=== PATIENT | male | born 1970 | race African-American/Black ===

== ENCOUNTER 2020-10-10 11:46 | Emergency (ER) | payer MEDICAID ==
[~2020-10-10] VITALS: Ht 170.2 cm; Wt 63.0 kg
[~2020-10-10 11:46] MED LIST: METF-414
[2020-10-10] MEDS ORDERED: CEFTRIAXONE SODIUM 250 MG/VIAL IM ONE (12:30)
[2020-10-10] MEDS ORDERED: AZITHROMYCIN 500 MG TABLET PO ONE (12:30)
[2020-10-10] MEDS ORDERED: ACETAMINOPHEN 325MG TABLET PO ONE (12:30)
[2020-10-10 14:46] VITALS: BP 138/83
== END 2020-10-10 14:47 | disposition home or self-care (01) ==
LOC: ER 11:46
DX: M25.512 Pain in left shoulder (principal); R63.4 Abnormal weight loss; F12.10 Cannabis abuse, uncomplicated; E11.9 Type 2 diabetes mellitus without complications; Z11.3 Encounter for screening for infections with a predominantly sexual mode of transmission
CPT/HCPCS: 71045; 73030; 96372; 99284; J0696

== ENCOUNTER 2021-04-21 20:51 | Emergency (ER) | payer MEDICAID, OTHER ==
[~2021-04-21] VITALS: Ht 170.2 cm; Wt 65.7 kg
[2021-04-22] MEDS ORDERED: ASPIRIN 325MG EC TABLET PO ONE
[2021-04-22 00:03] LABS: BASOPHILS % 0.9 % (0.0-2.0); HEMATOCRIT. 40.2 % (42.0-52.0); LYMPHOCYTES % 37.9 % (20.0-50.0); MEAN CORPUSCULAR HEMOGLOBIN 31.8 pg (28.0-32.0); MEAN CORPUSCULAR VOLUME 91.4 fL (80.0-94.0); MEAN PLATELET VOLUME 8.6 fl (7.4-10.4); MONOCYTES % 6.1 % (2.0-8.0); NEUTROPHILS % 51.1 % (40.0-76.0); PLATELET 260 x1000/uL (130-400); RED BLOOD CELL COUNT 4.39 mill/uL (4.7-6.1); RED CELL DISTRIBUTION WIDTH 13.7 % (11.6-14.6)
[2021-04-22 00:04] LABS: CHLORIDE 106 mEq/L (98-107)
[2021-04-22 01:46] VITALS: BP 130/67
== END 2021-04-22 01:52 | disposition home or self-care (01) ==
LOC: ER 20:51
DX: R06.02 Shortness of breath (principal); F12.10 Cannabis abuse, uncomplicated; E11.9 Type 2 diabetes mellitus without complications
CPT/HCPCS: 36415; 71045; 80053; 82962; 83880; 84484; 85025; 93005; 99285